=== PATIENT | male | born 1950 | race Caucasian/White ===

== ENCOUNTER 2021-01-01 09:53 | Emergency (ER) | payer OTHER ==
--- OUTSIDE RECORDS SUMMARY | 2021-01-01 10:13 | XMS REPORT | Continuity of Care Document ---
:1950 Author Organization [facility] t Address [address] [place] [address] Care Team Providers Name Role Phone Odilia COLBERT, [facility] Primary Care Physician [phone] Doctor Unassigned, [place] Attending Clinician Unavailable Nallely BANGURA Attending Clinician Unavailable Gilles COLBERT Attending Clinician Yael Yousif MD Attending Clinician Gloria COLBERT Attending Clinician Naldo COLBERT P Attending Clinician Matthew Traore DO Attending Clinician Singer DYE Attending Clinician Ranjith COLBERT Attending Clinician Carolee COLBERT Attending Clinician Lab, Fam Pob I Attending Clinician Unavailable Codie GAN S Attending Clinician Gloria COLBERT Admitting Clinician Ranjith COLBERT Admitting Clinician Payers Payer Name Policy Type Policy Number Effective Date Expiration Date S ource Problems Condition Condition Condition Status Onset Resolution Last Treating Co mments Source Name Details Category Date Date Treatment Clinician Date Bed-ridden Bed-ridden Problem Active [facility] 4-16 Family 00:00: Practic 00 e Aphagia Aphagia Problem Active [place] 4[facility] Family 00:00: Practic 00 e Incontinen Incontinen Problem Active [facility] ce ce 4-16 Family 00:00: Practic 00 e Total Total Problem Active [facility] self-care Self-care 4-16 Fami ly deficit Deficit 00:00: Practic 00 e Bilateral Bilateral Problem Active 2019-06 Roma griselda cataracts Cataracts 07-30 Fami ly 00:00: Practic 00 e Ex-smoker Ex-smoker Problem Active Roma griselda 9-01 Family 00:00: Practic 00 e Hyperchole Hyperchole Problem Active [facility] sterolemia sterolemia 9-05 [facility] 00:00: Practic 00 e Insomnia Insomnia Problem Active Delacruz ge 9-05 Family 00:00: Practic 00 e Essential Essential Problem Active Roma villalobos hypertensi Hypertensi 9-05 Fa norman on on 00:00: Practic 00 e Gastroesop Gastroesop Problem Active [facility] hageal hageal 9-05 Family reflux Reflux 00:00: Practic disease Disease 00 e Bilateral Bilateral Problem Active Roma griselda knee pain Knee Pain 905 Fami ly 00:00: Practic 00 e Allergies, Adverse Reactions, Alerts Allergy Allergy Status Severity Reaction(s) Onset Inactive Treating Comm ents Source Name Type Date Date Clinician No Known DA Active [facility] Allergie 3-05 Clear s 00:00: Morfin 00 [facility] No Known DA Active [facility] Allergie 3-04 Clear s 00:00: Morfin 00 [facility] Social History Social Habit Start Date Stop Date Quantity Comments Source Cigarettes smoked 2016-12-24 2016-12-[address] [facility] current (pack per 00:00:00 00:00:00 day) - Reported Alcohol intake 2016-12-24 2016-12-24 Current drinker [facility] 00:00:00 00:00:00 of alcohol (finding) Alcohol Comment 2016-09-15 2016-09-15 scotlizette Roy ethodist 00:00:00 00:00:00 [birth year] Donnie Roy ethodist 00:00:00 00:00:00 Smoking Status Start Date Stop Date Source Former Smoker [facility] Current every day smoker 2016-12-24 00:00:00 Angel Luis compa [facility] Medications Ordered Filled Start Stop Current Ordering Indication Dosage Frequency Signature Comments Components Source Medication Medication Date Date Medication? Clinician (SIG) Name Name omeprazole Yes 20mg QD Take 20 mg [place] (PriLOSEC) 6-30 by mouth Metho di 20 MG 08:31: daily. st capsule 27 amitriptyli Yes QD Take by Angel Luis chatman ne (ELAVIL) 6-30 mouth Methodi 75 MG 08:31: nightly. st tablet 27 cyclobenzap Yes 10mg QD Take 10 mg Fields rine 1-25 by mouth Methodi (FLEXERIL) 00:00: nightly as s t 10 mg 00 needed. tablet atenolol Yes 25mg QD Take 25 mg Angel Luis chatman (TENORMIN) 1-12 by mouth Metho di 25 MG 00:00: once st tablet 00 daily. amantadine amantadine No 1 BID amantadine [facility] HCl 100 mg HCl 100 mg HCl 100 mg Family tablet Take tablet Take tablet Practic 1 tablet 1 tablet Take 1 e twice a day twice a day tablet by oral by oral twice a route. route. day by oral route. amiodarone amiodarone No 1 Q1D amiodarone [facility] 200 mg 200 mg 200 mg Family tablet Take tablet Take tablet Practic 1 tablet 1 tablet Take 1 e every day every day tablet by oral by oral every day route. route. by oral route. amitriptyli amitriptyli No 1 Q1D amitriptyl [facility] ne 75 mg ne 75 mg ine 75 mg Fa norman tablet Take tablet Take tablet Practic 1 tablet 1 tablet Take 1 e every day every day tablet by oral by oral every day route. route. by oral route. amlodipine amlodipine No 1 Q1D amlodipine [facility] 5 mg tablet 5 mg tablet 5 mg F amily Take 1 Take 1 tablet Practic tablet tablet Take 1 e every day every day tablet by oral by oral every day route. route. by oral route. aspirin one aspirin one No aspirin [place] tablet tablet one tablet Famil y daily daily daily Practic e atenolol 25 atenolol 25 No 1 Q1D atenolol [place] mg tablet mg tablet 25 mg Fami ly Take 1 Take 1 tablet Practic tablet tablet Take 1 e every day every day tablet by oral by oral every day route. route. by oral route. atorvastati atorvastati No 1 Q1D atorvastat [facility] n 20 mg n 20 mg in 20 mg Famil y tablet Take tablet Take tablet Practic 1 tablet 1 tablet Take 1 e every day every day tablet by oral by oral every day route. route. by oral route. bupropion bupropion No 1 BID bupropion [facility] HCl 150 mg HCl 150 mg HCl 150 mg Family tablet,12 tablet,12 tablet,12 Practic hr hr hr e sustained-r sustained-r sustained- elease(smok elease(smok release(sm ing ing oking deterrent) deterrent) deterrent) Take 1 Take 1 Take 1 tablet tablet tablet twice a day twice a day twice a by oral by oral day by route. route. oral route. carvedilol carvedilol No 1 BID carvedilol [facility] 25 mg 25 mg 25 mg Family tablet Take tablet Take tablet Practic 1 tablet 1 tablet Take 1 e twice a day twice a day tablet by oral by oral twice a route. route. day by oral route. clopidogrel clopidogrel No 1 Q1D clopidogre [facility] 75 mg 75 mg l 75 mg Family tablet Take tablet Take tablet Practic 1 tablet 1 tablet Take 1 e every day every day tablet by oral by oral every day route. route. by oral route. lisinopril lisinopril No 1 Q1D lisinopril [facility] 20 mg 20 mg 20 mg Family tablet Take tablet Take tablet Practic 1 tablet 1 tablet Take 1 e every day every day tablet by oral by oral every day route. route. by oral route. lovastatin lovastatin No 1 Q1D lovastatin [facility] 20 mg 20 mg 20 mg Family tablet Take tablet Take tablet Practic 1 tablet 1 tablet Take 1 e every day every day tablet by oral by oral every day route. route. by oral route. melatonin melatonin No 1capsul Q1D melatonin [facility] 10 mg 10 mg e(s) 10 mg Family capsule capsule capsule Practi c Take 1 Take 1 Take 1 e capsule capsule capsule every day every day every day by oral by oral by oral route. route. route. metoprolol metoprolol No 1 BID metoprolol [facility] tartrate 50 tartrate 50 tartrate Family mg tablet mg tablet 50 mg Prac tic Take 1 Take 1 tablet e tablet tablet Take 1 twice a day twice a day tablet by oral by oral twice a route. route. day by oral route. omeprazole omeprazole No 1capsul Q1D omeprazole [facility] 20 mg 20 mg e(s) 20 mg Family capsule,del capsule,del capsule,de Practic ayed ayed layed e release release release Take 1 Take 1 Take 1 capsule capsule capsule every day every day every day by oral by oral by oral route. route. route. potassium potassium No 1packet QID potassium [facility] chloride 20 chloride 20 (s) chloride Family mEq oral mEq oral 20 mEq Pract ic packet Take packet Take oral e 1 packet 4 1 packet 4 packet times a day times a day Take 1 by oral by oral packet 4 route. route. times a day by oral route. Immunizations Ordered Immunization Filled Immunization Date Status Commen ts Source Name Name influenza, influenza, 2020-02-28 Completed [facility] injectable, injectable, 00:00:00 Practice quadrivalent quadrivalent influenza, influenza, 2018-06-29 [facility] injectable, injectable, 00:00:00 Practice quadrivalent quadrivalent influenza, influenza, 2018-03-29 [facility] injectable, injectable, 00:00:00 Practice quadrivalent quadrivalent pneumococcal pneumococcal 2016-06-29 [facility] norman polysaccharide PPV23 polysaccharide PPV23 00:00:00 Practice zoster recombinant zoster recombinant 2011-06-29 [facility] 00:00:00 Practice Vital Signs Vital Name Observation Time Observation Value Comments Source BP Diastolic 2020-10-12 00:00:00 80 mm[Hg] [facility] Height 2020-10-12 00:00:00 73 [in_i] [facility] BMI (Body Mass 2020-10-12 00:00:00 29 kg/m2 [facility] Index) Practice BP Systolic 2020-10-12 00:00:00 145 mm[Hg] [facility] Body Weight 2020-10-12 00:00:00 220 [lb_av] [facility] BP Diastolic 2020-05-29 00:00:00 80 mm[Hg] [facility] Practice Height 2020-05-29 00:00:00 73 [in_i] [facility] Practice BMI (Body Mass 2020-05-29 00:00:00 29 kg/m2 Vill e Family Index) Practice BP Systolic 2020-05-29 00:00:00 130 mm[Hg] [facility] Body Weight 2020-05-29 00:00:00 220 [lb_av] [facility] Height 2020-02-28 00:00:00 73 [in_i] [facility] Practice BMI (Body Mass 2020-02-28 00:00:00 29 kg/m2 [facility] e Family Index) Practice Body Weight 2020-02-28 00:00:00 220 [lb_av] [facility] Procedures Procedure Date / Time Performed Performing Clinician Sour e External Rhinoplasty [facility] Practice Hernia Repair W/mesh [facility] Bilateral Replacement [facility] Knee Joints Practice Screening for Malignant [facility] Neoplasm of Prostate [facility] Screening Colonoscopy [facility] Plan of Care Planned Activity Planned Date Details Comments Source Future Scheduled Test 2021-01-27 INFLUENZA VACCINE [facility] 00:00:00 [code = INFLUENZA VACCINE] Future Scheduled Test 2015 65+ PNEUMOCOCCAL [facility] 00:00:00 VACCINE (1 of 1 - PPSV23) [code = 65+ PNEUMOCOCCAL VACCINE (1 of 1 - PPSV23)] Future Scheduled Test [address] [facility] 00:00:00 [code = COLONOSCOPY SCREENING] Future Scheduled Test 2000 SHINGLES VACCINES [facility] 00:00:00 (#1) [code = SHINGLES VACCINES (#1)] Future Scheduled Test 1962 COVID-19 VACCINE (1) [facility] 00:00:00 [code = COVID-19 VACCINE (1)] Future Appointment 2021-01-21 Omiana Ajibalauren, 9235 [facility] Family 00:00:00 [address]; [address], [place] [address] Encounters Start End Encounter Admission Attending Care Care Encounter Source Date/Time Date/Time Type Type Clinicians Facility Department ID 2020-11-21 2020-11-21 Orders Doctor GUTIERRES [id number] [id number] 00:00:00 00:00:00 Only Unassigned, NIRMALA [id number] [place] [facility] [id number] 2020-11-16 2020-11-16 Transition Tariq Browningstacy [id number] 00:00:00 00:00:00 of Care Jazmine Mejíay [id number] [place] [id number] 2020-11-02 2020-11-15 [facility] Evan Campoverde 1.2.840.1 [id number] 13:45:00 19:11:00 Encounter Durga Yousif [id number]. 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 2020-08-28 2020-08-28 Patient Víctor [facility] [id number] 00:00:00 00:00:00 Outreach [facility] [id number] [facility] [id number] ELOY [id number] 2020-08-02 2020-08-02 Transition Tariq Browningstacy 1.2.840.114 [id number] 00:00:00 00:00:00 of Care Jazmine Mejíay [id number] [place] [id number] 2020-07-12 2020-08-01 [facility] Taiwo Ferguson 1.2.840.1 14 [id number] 11:54:00 16:00:00 Encounter Con[facility] K[id number] [facility] [id number] [id number] 2020-07-08 2020-07-08 Laboratory Lab, [facility] 1.2.840.114 [id number] 13:10:36 13:30:36 Only [facility]am [facility] [id number] [place] 4.2.7.2.686 David [id number] nal [address] 2020-05-29 2020-05-29 [facility] [id number] V illage 00:00:00 00:00:00 Jill Perry Famil y 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 2019-09-12 2019-09-12 [facility] 1.2.840.114 [id number] 14:37:00 23:59:00 Encounter [facility] [id number] Surgical [id number] Specialti [id number] es 809 [place] 2019-09-12 2019-09-12 Office [facility] 1.2.840.114 [id number] 14:30:23 14:45:23 Visit [facility] [id number] Surgical [id number] Specialti [id number] es 198 [place] Results Test Description Test Time Test Comments Results Result Comments Source CBC W/AUTO DIFF 2020-09-29 08:39:00 Test Item Value Reference Range Interpretation Comme nts WHITE BLOOD CELL (test code = WBC) 10.0 x10 3/uL 4.5-11.0 N RED BLOOD CELL (test code = RBC) 3.82 x10 6/uL 4.00-5.60 L HEMOGLOBIN (test code = HGB) 9.9 g/dL 12.5-16.9 L HEMATOCRIT (test code = HCT) 33.9 % 37.5-50.7 L MEAN CELL VOLUME (test code = MCV) 88.7 fL 81.0-99.0 N MEAN CELL HGB (test code = MCH) 25.9 pg 27.0-33.0 L MEAN CELL HGB CONCETRATION (test code = MCHC) 29.2 g/dL 33.0-37. 0 L RED CELL DISTRIBUTION WIDTH CV (test code = RDW) 16.9 % 11.5- 14.5 H RED CELL DISTRIBUTION WIDTH SD (test code = RDW-SD) 53.4 fL 37 .0-54.0 N PLATELET COUNT (test code = PLT) 397 x10 3/uL 150-400 N MEAN PLATELET VOLUME (test code = MPV) 8.9 fL 7.0-9.0 N NEUTROPHIL % (test code = NT%) 54.2 % 56.0-77.0 L IMMATURE GRANULOCYTE % (test code = IG%) 0.6 % 0.0-2.0 N LYMPHOCYTE % (test code = LY%) 35.1 % 14.0-32.0 H MONOCYTE % (test code = MO%) 7.7 % 4.8-9.0 N EOSINOPHIL % (test code = EO%) 1.7 % 0.3-3.7 N BASOPHIL % (test code = BA%) 0.7 % 0.0-2.0 N NUCLEATED RBC % (test code = NRBC%) 0.0 % 0-0 N NEUTROPHIL # (test code = NT#) 5.40 x10 3/uL 2.0-7.6 N IMMATURE GRANULOCYTE # (test code = IG#) 0.06 x10 3/uL 0.00-0.03 H LYMPHOCYTE # (test code = LY#) 3.50 x10 3/uL 1.0-3.8 N MONOCYTE # (test code = MO#) 0.77 x10 3/uL 0.1-0.8 N EOSINOPHIL # (test code = EO#) 0.17 x10 3/uL 0.0-0.2 N BASOPHIL # (test code = BA#) 0.07 x10 3/uL 0.0-0.2 N NUCLEATED RBC # (test code = NRBC#) 0.00 x10 3/uL 0.0-0.1 N MANUAL DIFF REQUIRED (test code = MDIFF) NO CBC W/AUTO [id number] 08:01:00 Test Item Value Reference Range Interpretation Comments WHITE BLOOD CELL (test code = x10 3/uL 4.5-11.0 WBC) RED BLOOD CELL (test code = RBC) x10 6/uL 4.00-5.60 HEMOGLOBIN (test code = HGB) g/dL 12.5-16.9 HEMATOCRIT (test code = HCT) % 37.5-50.7 MEAN CELL VOLUME (test code = fL 81.0-99.0 MCV) MEAN CELL HGB (test code = MCH) pg 27.0-33.0 MEAN CELL HGB CONCETRATION (test g/dL 33.0-37.0 code = MCHC) RED CELL DISTRIBUTION WIDTH CV % 11.5-14.5 (test code = RDW) PLATELET COUNT (test code = PLT) 397 x10 3/uL 150-400 N NEUTROPHIL % (test code = NT%) % 56.0-77.0 LYMPHOCYTE % (test code = LY%) % 14.0-32.0 NEUTROPHIL # (test code = NT#) x10 3/uL 2.0-7.6 LYMPHOCYTE # (test code = LY#) x10 3/uL 1.0-3.8 MANUAL DIFF REQUIRED (test code = MDIFF) BASIC METABOLIC [id number] 07:52:00 Test Item Value Reference Range Interpretation Comments SODIUM (test code = NA) 138 mEq/L 134-147 N POTASSIUM (test code = 3.0 mEq/L 3.4-5.0 L K) CHLORIDE (test code = 103 mEq/L 100-108 N CL) CARBON DIOXIDE (test 24 mEq/l 21-33 N code = CO2) ANION GAP (test code = 14 0-20 N GAP) GLUCOSE (test code = 67 mg/dL 70-110 L GLU) BLOOD UREA NITROGEN 9 mg/dL 7-18 N (test code = BUN) GLOMERULAR FILTRATION 95.6 70-80 H Units of measure = RATE (test code = GFR) ml/mi n/1.73 m2 CREATININE (test code = 0.8 mg/dL 0.6-1.3 N CREAT) CALCIUM (test code = 9.1 mg/dL 8.0-10.5 N CA) BASIC METABOLIC [id number] 08:23:00 Test Item Value Reference Range Interpretation Comments SODIUM (test code = NA) 139 mEq/L 134-147 N POTASSIUM (test code = 3.6 mEq/L 3.4-5.0 N K) CHLORIDE (test code = 106 mEq/L 100-108 N CL) CARBON DIOXIDE (test 21 mEq/l 21-33 N code = CO2) ANION GAP (test code = 16 0-20 N GAP) GLUCOSE (test code = 66 mg/dL 70-110 L GLU) BLOOD UREA NITROGEN < 5 mg/dL 7-18 L (test code = BUN) GLOMERULAR FILTRATION 111.5 70-80 H Units of measure = RATE (test code = GFR) ml/mi n/1.73 m2 CREATININE (test code = 0.7 mg/dL 0.6-1.3 N CREAT) CALCIUM (test code = 9.0 mg/dL 8.0-10.5 N CA) TOTAL IRON BINDING [id number] 08:11:00 Test Item Value Reference Range Interpretation Comments SERUM IRON (test code = IRON) 44 mcg/dL 35-150 N TOTAL IRON BINDING CAPACITY (test 299 mcg/dL 260-445 N code = TIBC) UIBC (test code = UIBC) 255 mcg/dL IRON SATURATION (test code = 14.7 % 14-34 N FESAT) VITAMIN [id number] 08:11:00 Test Item Value Reference Range Interpretation Comments VITAMIN B12 (test code = VITB12) 390 pg/mL 193-986 N FOLIC [id number] 08:11:00 Test Item Value Reference Range Interpretation Comments FOLIC ACID (test code = FOL) 18.8 ng/mL 3.1-17.5 H [id number] 08:11:00 Test Item Value Reference Range Interpretation Comments FERRITIN (test code = FLORA) 69.8 ng/mL 23.9-336.2 N CBC W/AUTO [id number] 07:20:00 Test Item Value Reference Range Interpretation Comments WHITE BLOOD CELL (test code = 11.1 x10 3/uL 4.5-11.0 H WBC) RED BLOOD CELL (test code = 3.61 x10 6/uL 4.00-5.60 L RBC) HEMOGLOBIN (test code = HGB) 9.4 g/dL 12.5-16.9 L HEMATOCRIT (test code = HCT) 32.1 % 37.5-50.7 L MEAN CELL VOLUME (test code = 88.9 fL 81.0-99.0 N MCV) MEAN CELL HGB (test code = MCH) 26.0 pg 27.0-33.0 L MEAN CELL HGB CONCETRATION 29.3 g/dL 33.0-37.0 L (test code = MCHC) RED CELL DISTRIBUTION WIDTH CV 15.9 % 11.5-14.5 H (test code = RDW) RED CELL DISTRIBUTION WIDTH SD 51.8 fL 37.0-54.0 N (test code = RDW-SD) PLATELET COUNT (test code = 366 x10 3/uL 150-400 N PLT) MEAN PLATELET VOLUME (test code 9.0 fL 7.0-9.0 N = MPV) NEUTROPHIL % (test code = NT%) 70.1 % 56.0-77.0 N IMMATURE GRANULOCYTE % (test 0.7 % 0.0-2.0 N code = IG%) LYMPHOCYTE % (test code = LY%) 20.6 % 14.0-32.0 N MONOCYTE % (test code = MO%) 6.6 % 4.8-9.0 N EOSINOPHIL % (test code = EO%) 1.5 % 0.3-3.7 N BASOPHIL % (test code = BA%) 0.5 % 0.0-2.0 N NUCLEATED RBC % (test code = 0.0 % 0-0 N NRBC%) NEUTROPHIL # (test code = NT#) 7.80 x10 3/uL 2.0-7.6 H IMMATURE GRANULOCYTE # (test 0.08 x10 3/uL 0.00-0.03 H code = IG#) LYMPHOCYTE # (test code = LY#) 2.29 x10 3/uL 1.0-3.8 N MONOCYTE # (test code = MO#) 0.74 x10 3/uL 0.1-0.8 N EOSINOPHIL # (test code = EO#) 0.17 x10 3/uL 0.0-0.2 N BASOPHIL # (test code = BA#) 0.06 x10 3/uL 0.0-0.2 N NUCLEATED RBC # (test code = 0.00 x10 3/uL 0.0-0.1 N NRBC#) MANUAL DIFF REQUIRED (test code NO = MDIFF) COMPREHENSIVE METABOLIC [id number] 00:49:00 Test Item Value Reference Range Interpretation Comments SODIUM (test code = NA) 139 mEq/L 134-147 N POTASSIUM (test code = 3.2 mEq/L 3.4-5.0 L K) CHLORIDE (test code = 106 mEq/L 100-108 N CL) CARBON DIOXIDE (test 24 mEq/l 21-33 N code = CO2) ANION GAP (test code = 12 0-20 N GAP) GLUCOSE (test code = 84 mg/dL 70-110 N GLU) BLOOD UREA NITROGEN 7 mg/dL 7-18 N (test code = BUN) GLOMERULAR FILTRATION 111.5 70-80 H Units of measure = RATE (test code = GFR) ml/mi n/1.73 m2 CREATININE (test code = 0.7 mg/dL 0.6-1.3 N CREAT) TOTAL PROTEIN (test 5.7 g/dL 6.4-8.2 L code = PROT) ALBUMIN (test code = 2.80 g/dL 3.4-5.0 L ALB) CALCIUM (test code = 8.8 mg/dL 8.0-10.5 N CA) BILIRUBIN TOTAL (test 0.50 mg/dL 0.0-1.0 N code = BILT) SGOT/AST (test code = 16 IUnit/L 15-37 N AST) SGPT/ALT (test code = 12 IUnit/L 30-65 L ALT) ALKALINE PHOSPHATASE 179 IUnit/L 20-125 H TOTAL (test code = ALKP) PROTHROMBIN [id number] 00:34:00 Test Item Value Reference Range Interpretation Comments PROTHROMBIN TIME 20.6 SECONDS 9.3-12.9 H PATIENT (test code = PTP) INTERNATIONAL NORMAL 1.9 0.8-1.2 H TARGET RATIO (test code = INR BY IN DICATION INR) Indication INR1. Prophyl axis of venous thrombos is 2.0 - 3. 0 (orthopedic [place] aime), Prophylaxis of venous thrombos is (other than hig h-risk surgery), Jes tment of Deep Vein Thrombosis/Pulm onary Embolism, Preve ntion of systemic emb olism - Tissue heart va lves, Acute Myocardia l Infarction (to prevent systemic embo lism), Valvular heart disease, Atri al Fibrillation, Bileaflet mecha nical valve in aortic position.2. Mec hanical prosthetic valv es (high risk), 2.5 - 3.5 Presence of Lupus Anticoagu lant or Antiphospholi pid Antibodies, Pre vention of systemic e mbolism - Acute Myocard ial Infarction (t o prevent recurre nt infarct). THROMBOPLASTIN TIME [id number] 00:34:00 Test Item Value Reference Range Interpretation Comments THROMBOPLASTIN TIME 38.6 Seconds 25.0-39.5 N Ther apeutic PARTIAL (test code = Range: 50.4 - 88.3 PTT) Seconds Effective 10/12/2018 CBC W/AUTO [id number] 00:32:00 Test Item Value Reference Range Interpretation Comments WHITE BLOOD CELL (test code = 12.7 x10 3/uL 4.5-11.0 H WBC) RED BLOOD CELL (test code = 2.86 x10 6/uL 4.00-5.60 L RBC) HEMOGLOBIN (test code = HGB) 7.2 g/dL 12.5-16.9 L HEMATOCRIT (test code = HCT) 25.0 % 37.5-50.7 L MEAN CELL VOLUME (test code = 87.4 fL 81.0-99.0 N MCV) MEAN CELL HGB (test code = MCH) 25.2 pg 27.0-33.0 L MEAN CELL HGB CONCETRATION 28.8 g/dL 33.0-37.0 L (test code = MCHC) RED CELL DISTRIBUTION WIDTH CV 16.0 % 11.5-14.5 H (test code = RDW) RED CELL DISTRIBUTION WIDTH SD 51.1 fL 37.0-54.0 N (test code = RDW-SD) PLATELET COUNT (test code = 401 x10 3/uL 150-400 H PLT) MEAN PLATELET VOLUME (test code 8.7 fL 7.0-9.0 N = MPV) NEUTROPHIL % (test code = NT%) 74.5 % 56.0-77.0 N IMMATURE GRANULOCYTE % (test 0.6 % 0.0-2.0 N code = IG%) LYMPHOCYTE % (test code = LY%) 18.9 % 14.0-32.0 N MONOCYTE % (test code = MO%) 4.8 % 4.8-9.0 N EOSINOPHIL % (test code = EO%) 0.9 % 0.3-3.7 N BASOPHIL % (test code = BA%) 0.3 % 0.0-2.0 N NUCLEATED RBC % (test code = 0.0 % 0-0 N NRBC%) NEUTROPHIL # (test code = NT#) 9.48 x10 3/uL 2.0-7.6 H IMMATURE GRANULOCYTE # (test 0.07 x10 3/uL 0.00-0.03 H code = IG#) LYMPHOCYTE # (test code = LY#) 2.40 x10 3/uL 1.0-3.8 N MONOCYTE # (test code = MO#) 0.61 x10 3/uL 0.1-0.8 N EOSINOPHIL # (test code = EO#) 0.12 x10 3/uL 0.0-0.2 N BASOPHIL # (test code = BA#) 0.04 x10 3/uL 0.0-0.2 N NUCLEATED RBC # (test code = 0.00 x10 3/uL 0.0-0.1 N NRBC#) MANUAL DIFF REQUIRED (test code NO = MDIFF) - CT HEAD/BRAIN W/O [id number] 11:40:00 [facility] : 1950 Sex: M Name: GUICHO RAYMUNDO [facility] : 1950 Age/S: 70 / M [address] [place] [address] Unit #: [id number] Loc: [place] [address] Phys: Jose Raul Barrientos MD Acct: [id number] Dis Date: Status: REG ER PHONE #: [phone] Exam Date: 09/07/2020 1124 FAX #: [phone] Reason: fall, head strike, on eliquis EXAMS: CPT CODE: [id number] CT HEAD/BRAIN W/O CONT [address] WITHOUT CONTRAST 09/07/2020 AT 737 HOURS. CLINICAL HISTORY: Head strike post fall. On Eliquis. COMPARISON STUDIES: None relevant. ADMINISTERED CONTRAST: None. DLP: 577.84 mGy-cm FINDINGS: Contiguous 2.5 mm axial images of the brain were obtained from the skull base to vertex. Axial bone window and multiplanar reconstructions were also obtained. A large chronic left MCA distribution infarct is identified with severe encephalomalacia and no new CT evidence of acute intracranial ischemia or hemorrhage. These changes are on a background of involutional change and moderate to severe chronic white matter small vessel ischemic disease. Ex vacuo dilatation of the ventricular system is noted in keeping with cerebral volume loss. No mass occupying lesion or midline shift. Severe bilateral cavernous ICA calcification is noted with moderate calcification of the intracranial (V4) vertebral artery segments. Clear paranasal sinuses and left mastoid air cells.A small right mastoid effusion is noted. No visible scalp contusion/hematoma or radiopaque foreign body considering history. IMPRESSION: 1. No acute traumatic intracranial injury. 2. Age related involutional changes and chronic ischemic disease as described. If the patient has a new, persistent, focal neurologic deficit, follow-up with diffusion weighted MRI might be helpful. 3. Severe atherosclerosis. 4. Small right mastoid effusion. ____ CT imaging performed at this location utilizes radiation dose optimization techniques which include one or more of the following: - Automated exposure control-Adjustment of the mA and/or kV according to patient size -Use of iterative reconstruction technique SL: TR-H PAGE 1 Signed Report (CONTINUED) Name: ZACKARYGUICHO [facility] : 07/1950 Age/S: 70 / M [address] [place] [address] Blvd Unit #: [id number] Loc: [place] [address] Phys: Jose Raul Barrientos MD Acct: [id number] Dis Date: Status: REG ER PHONE #: [phone] Exam Date: 09/07/20204 FAX #: [phone]: fall, head strike, on eliquis EXAMS: CPT CODE: [id number] CT HEAD/BRAIN W/O CONT 61101 <Continued> at 1140 Reported and signed by: Sergio Grimes CC: Jose Raul Barrientos MD Lou hnologist:Steve Daniel RT(R)(CT) CTDI: DLP: Trnscb Date/Time: 09/07/2020 (1140) [email or web address] Orig Print D/T: S: 09/07/2020 (5273) PAGE 2 Signed ReportBASIC METABOLIC [id number] 07:55:00 Test Item Value Reference Range Interpretation Comments SODIUM (test code = NA) 139 mEq/L 134-147 N POTASSIUM (test code = 2.8 mEq/L 3.4-5.0 LL Criti jr result K) called to Mariela KENNEYLAB.DVW at 07 55 09/05/20Nsusana donis back resut and tech confirmed it's correct? Y CHLORIDE (test code = 107 mEq/L 100-108 N CL) CARBON DIOXIDE (test 24 mEq/l 21-33 N code = CO2) ANION GAP (test code = 11 0-20 N GAP) GLUCOSE (test code = 86 mg/dL 70-110 N GLU) BLOOD UREA NITROGEN 8 mg/dL 7-18 N (test code = BUN) GLOMERULAR FILTRATION 111.5 70-80 H Units of measure = RATE (test code = GFR) ml/mi n/1.73 m2 CREATININE (test code = 0.7 mg/dL 0.6-1.3 N CREAT) CALCIUM (test code = 9.0 mg/dL 8.0-10.5 N CA) [id number] 07:55:00 Test Item Value Reference Range Interpretation Comments MAGNESIUM (test code = MAG) 1.65 mg/dL 1.80-2.40 L CBC W/AUTO [id number] 07:32:00 Test Item Value Reference Range Interpretation Comments WHITE BLOOD CELL (test code = 10.9 x10 3/uL 4.5-11.0 N WBC) RED BLOOD CELL (test code = 3.39 x10 6/uL 4.00-5.60 L RBC) HEMOGLOBIN (test code = HGB) 9.5 g/dL 12.5-16.9 L HEMATOCRIT (test code = HCT) 32.4 % 37.5-50.7 L MEAN CELL VOLUME (test code = 95.6 fL 81.0-99.0 N MCV) MEAN CELL HGB (test code = MCH) 28.0 pg 27.0-33.0 N MEAN CELL HGB CONCETRATION 29.3 g/dL 33.0-37.0 L (test code = MCHC) RED CELL DISTRIBUTION WIDTH CV 15.5 % 11.5-14.5 H (test code = RDW) RED CELL DISTRIBUTION WIDTH SD 55.0 fL 37.0-54.0 H (test code = RDW-SD) PLATELET COUNT (test code = 400 x10 3/uL 150-400 N PLT) MEAN PLATELET VOLUME (test code 9.6 fL 7.0-9.0 H = MPV) NEUTROPHIL % (test code = NT%) 66.5 % 56.0-77.0 N IMMATURE GRANULOCYTE % (test 0.8 % 0.0-2.0 N code = IG%) LYMPHOCYTE % (test code = LY%) 26.1 % 14.0-32.0 N MONOCYTE % (test code = MO%) 4.4 % 4.8-9.0 L EOSINOPHIL % (test code = EO%) 1.7 % 0.3-3.7 N BASOPHIL % (test code = BA%) 0.5 % 0.0-2.0 N NUCLEATED RBC % (test code = 0.0 % 0-0 N NRBC%) NEUTROPHIL # (test code = NT#) 7.25 x10 3/uL 2.0-7.6 N IMMATURE GRANULOCYTE # (test 0.09 x10 3/uL 0.00-0.03 H code = IG#) LYMPHOCYTE # (test code = LY#) 2.84 x10 3/uL 1.0-3.8 N MONOCYTE # (test code = MO#) 0.48 x10 3/uL 0.1-0.8 N EOSINOPHIL # (test code = EO#) 0.18 x10 3/uL 0.0-0.2 N BASOPHIL # (test code = BA#) 0.05 x10 3/uL 0.0-0.2 N NUCLEATED RBC # (test code = 0.00 x10 3/uL 0.0-0.1 N NRBC#) MANUAL DIFF REQUIRED (test code NO = MDIFF) CBC W/AUTO [id number] 06:56:00 Test Item Value Reference Range Interpretation Comments WHITE BLOOD CELL (test code = x10 3/uL 4.5-11.0 WBC) RED BLOOD CELL (test code = RBC) x10 6/uL 4.00-5.60 HEMOGLOBIN (test code = HGB) g/dL 12.5-16.9 HEMATOCRIT (test code = HCT) % 37.5-50.7 MEAN CELL VOLUME (test code = fL 81.0-99.0 MCV) MEAN CELL HGB (test code = MCH) pg 27.0-33.0 MEAN CELL HGB CONCETRATION (test g/dL 33.0-37.0 code = MCHC) RED CELL DISTRIBUTION WIDTH CV % 11.5-14.5 (test code = RDW) PLATELET COUNT (test code = PLT) 400 x10 3/uL 150-400 N NEUTROPHIL % (test code = NT%) % 56.0-77.0 LYMPHOCYTE % (test code = LY%) % 14.0-32.0 NEUTROPHIL # (test code = NT#) x10 3/uL 2.0-7.6 LYMPHOCYTE # (test code = LY#) x10 3/uL 1.0-3.8 MANUAL DIFF REQUIRED (test code = MDIFF) [id number] 08:15:00 Test Item Value Reference Range Interpretation Comments GLUBED (test code = 148 MG/DL 70-110 H Performe d by certified GLUBED) 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 CBC W/AUTO [id number] 07:59:00 Test Item Value Reference Range Interpretation Comments WHITE BLOOD CELL (test code = 13.0 x10 3/uL 4.5-11.0 H WBC) RED BLOOD CELL (test code = 3.74 x10 6/uL 4.00-5.60 L RBC) HEMOGLOBIN (test code = HGB) 10.3 g/dL 12.5-16.9 L HEMATOCRIT (test code = HCT) 38.1 % 37.5-50.7 N MEAN CELL VOLUME (test code = 101.9 fL 81.0-99.0 H MCV) MEAN CELL HGB (test code = MCH) 27.5 pg 27.0-33.0 N MEAN CELL HGB CONCETRATION 27.0 g/dL 33.0-37.0 L (test code = MCHC) RED CELL DISTRIBUTION WIDTH CV 16.3 % 11.5-14.5 H (test code = RDW) RED CELL DISTRIBUTION WIDTH SD 61.8 fL 37.0-54.0 H (test code = RDW-SD) PLATELET COUNT (test code = 440 x10 3/uL 150-400 H PLT) MEAN PLATELET VOLUME (test code 9.6 fL 7.0-9.0 H = MPV) NEUTROPHIL % (test code = NT%) 73.7 % 56.0-77.0 N IMMATURE GRANULOCYTE % (test 0.5 % 0.0-2.0 N code = IG%) LYMPHOCYTE % (test code = LY%) 17.7 % 14.0-32.0 N MONOCYTE % (test code = MO%) 6.4 % 4.8-9.0 N EOSINOPHIL % (test code = EO%) 1.1 % 0.3-3.7 N BASOPHIL % (test code = BA%) 0.6 % 0.0-2.0 N NUCLEATED RBC % (test code = 0.0 % 0-0 N NRBC%) NEUTROPHIL # (test code = NT#) 9.55 x10 3/uL 2.0-7.6 H IMMATURE GRANULOCYTE # (test 0.07 x10 3/uL 0.00-0.03 H code = IG#) LYMPHOCYTE # (test code = LY#) 2.30 x10 3/uL 1.0-3.8 N MONOCYTE # (test code = MO#) 0.83 x10 3/uL 0.1-0.8 H EOSINOPHIL # (test code = EO#) 0.14 x10 3/uL 0.0-0.2 N BASOPHIL # (test code = BA#) 0.08 x10 3/uL 0.0-0.2 N NUCLEATED RBC # (test code = 0.00 x10 3/uL 0.0-0.1 N NRBC#) MANUAL DIFF REQUIRED (test code NO = MDIFF) COMPREHENSIVE METABOLIC [id number] 07:41:00 Test Item Value Reference Range Interpretation Comments SODIUM (test code = NA) 145 mEq/L 134-147 N POTASSIUM (test code = 3.2 mEq/L 3.4-5.0 L K) CHLORIDE (test code = 114 mEq/L 100-108 H CL) CARBON DIOXIDE (test 20 mEq/l 21-33 L code = CO2) ANION GAP (test code = 14 0-20 N GAP) GLUCOSE (test code = 96 mg/dL 70-110 N GLU) BLOOD UREA NITROGEN 9 mg/dL 7-18 (test code = BUN) GLOMERULAR FILTRATION 111.5 70-80 H Units of measure = RATE (test code = GFR) ml/mi n/1.73 m2 CREATININE (test code = 0.7 mg/dL 0.6-1.3 N CREAT) TOTAL PROTEIN (test 6.3 g/dL 6.4-8.2 L code = PROT) ALBUMIN (test code = 3.00 g/dL 3.4-5.0 L ALB) CALCIUM (test code = 9.2 mg/dL 8.0-10.5 N CA) BILIRUBIN TOTAL (test 0.40 mg/dL 0.0-1.0 code = BILT) SGOT/AST (test code = 26 IUnit/L 15-37 N AST) SGPT/ALT (test code = 22 IUnit/L 30-65 L ALT) ALKALINE PHOSPHATASE 146 IUnit/L 20-125 H TOTAL (test code = ALKP) [id number] 07:41:00 Test Item Value Reference Range Interpretation Comments MAGNESIUM (test code = MAG) 2.09 mg/dL 1.80-2.40 N - CT ABD PELVIS [id number] 13:19:00 [facility] EMERY MORFINName: GUICHO RAYMUNDO : 1950 Sex: M Name: GUICHO RAYMUNDO [facility] Emery Morfin : 1950 Age/S: 70 / M [address] [place] [address] Blvd Unit #: [id number] Loc: [place] [address] Phys: Zander Gordon [employer]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 Coronal and sagittal reconstructed images were performed. Nooral contrast was given. CT imaging performed at this location utilizes radiation dose optimization techniques which include one or more of the following: - Automated exposure control -Adjustment of the mA and/or kV according to patient size -Use of iterative reconstruction technique CT Radiation Dose DLP 833.50 mGy-cm Comparison is made to x-ray08/30/2020 FINDINGS: Dependent atelectasis in the lung bases is noted. Colonic interposition is noted. No calcified gallstones are present. No lesion within the liver is identified. No splenic mass is present. Bilateral adrenal glands are grossly unremarkable. Left kidney enhances normally. No hydronephrosis or renal stones are present. There is diminished enhancement in the posterior portion of the right kidney. Pancreas appears normal. Aortic calcifications are present without aneurysmal dilatation. There is free intraperitoneal air anterior to the liver. No drainable fluid collection is noted. No extraluminal contrast is identified. There is contrast in the colon with mild scatter artifact. No bowel dilatation is present. Appendix is normal caliber. Urinary bladder and prostate are grossly unremarkable. No iliac or inguinal lymphadenopathy is present. No drainable fluid collection is identified. There are mild degenerative changes throughout the lumbar spine. No acute or aggressive bony abnormality is present. IMPRESSION: 1. Small volume free intraperitoneal air likely related to recent gastric tube replacement attempt. 2. No contrast identified within peritoneum. No fluid collection. 3. No bowel obstruction. 4. Dependent atelectasis in lung bases. 5. Abnormal enhancement of posterior right kidney. Mild pyelonephritis not excluded. SL: [id number] PAGE 1 Signed Report (CONTINUED) Name: ALFREDA RAYMUNDO : 1950 Age/S: 70 / M [address] [place] [address] Unit #: [id number] Loc: [place] [address] Phys: Zander Gordon NP Acct: [id number] Dis Date: Status: ADM IN PHONE #: [phone] Exam Date: 09/01/2020 1301 FAX #: [phone] Reason: to check Leak in abdominal cavity EXAMS: CPT CODE: [id number] CT ABD PELVIS W/CONT 81677 <Continued> at 1319 Reported and signed by: Sloan Rey M.D. CC: Narendra Woods MD; Zander Gordon NP Technologist:RT Jaqueline(R)(CT) CTDI: DLP: Trnscb Date/Time: 09/01/2020 (1319) [email or web address] Orig Print D/T: S: 09/01/2020 (1322) PAGE 2 Signed ReportCBC W/AUTO [id number] 09:52:00 Test Item Value Reference Range Interpretation Comments WHITE BLOOD CELL (test code = 12.7 x10 3/uL 4.5-11.0 H WBC) RED BLOOD CELL (test code = 3.69 x10 6/uL 4.00-5.60 L RBC) HEMOGLOBIN (test code = HGB) 10.3 g/dL 12.5-16.9 L HEMATOCRIT (test code = HCT) 34.9 % 37.5-50.7 L MEAN CELL VOLUME (test code = 94.6 fL 81.0-99.0 N MCV) MEAN CELL HGB (test code = MCH) 27.9 pg 27.0-33.0 N MEAN CELL HGB CONCETRATION 29.5 g/dL 33.0-37.0 L (test code = MCHC) RED CELL DISTRIBUTION WIDTH CV 16.3 % 11.5-14.5 H (test code = RDW) RED CELL DISTRIBUTION WIDTH SD 55.8 fL 37.0-54.0 H (test code = RDW-SD) PLATELET COUNT (test code = 371 x10 3/uL 150-400 N PLT) MEAN PLATELET VOLUME (test code 9.5 fL 7.0-9.0 H = MPV) NEUTROPHIL % (test code = NT%) 72.8 % 56.0-77.0 N IMMATURE GRANULOCYTE % (test 0.6 % 0.0-2.0 N code = IG%) LYMPHOCYTE % (test code = LY%) 19.2 % 14.0-32.0 N MONOCYTE % (test code = MO%) 6.1 % 4.8-9.0 N EOSINOPHIL % (test code = EO%) 0.9 % 0.3-3.7 N BASOPHIL % (test code = BA%) 0.4 % 0.0-2.0 N NUCLEATED RBC % (test code = 0.0 % 0-0 N NRBC%) NEUTROPHIL # (test code = NT#) 9.26 x10 3/uL 2.0-7.6 H IMMATURE GRANULOCYTE # (test 0.07 x10 3/uL 0.00-0.03 H code = IG#) LYMPHOCYTE # (test code = LY#) 2.44 x10 3/uL 1.0-3.8 N MONOCYTE # (test code = MO#) 0.78 x10 3/uL 0.1-0.8 N EOSINOPHIL # (test code = EO#) 0.12 x10 3/uL 0.0-0.2 N BASOPHIL # (test code = BA#) 0.05 x10 3/uL 0.0-0.2 N NUCLEATED RBC # (test code = 0.00 x10 3/uL 0.0-0.1 N NRBC#) MANUAL DIFF REQUIRED (test code NO = MDIFF) BASIC METABOLIC [id number] 09:51:00 Test Item Value Reference Range Interpretation Comments SODIUM (test code = NA) 144 mEq/L 134-147 N POTASSIUM (test code = 3.2 mEq/L 3.4-5.0 L K) CHLORIDE (test code = 110 mEq/L 100-108 H CL) CARBON DIOXIDE (test 26 mEq/l 21-33 N code = CO2) ANION GAP (test code = 11 0-20 N GAP) GLUCOSE (test code = 104 mg/dL 70-110 N GLU) BLOOD UREA NITROGEN 19 mg/dL 7-18 H (test code = BUN) GLOMERULAR FILTRATION 111.5 70-80 H Units of measure = RATE (test code = GFR) ml/mi n/1.73 m2 CREATININE (test code = 0.7 mg/dL 0.6-1.3 N CREAT) CALCIUM (test code = 10.5 mg/dL 8.0-10.5 N CA) CBC W/AUTO [id number] 09:44:00 Test Item Value Reference Range Interpretation Comments WHITE BLOOD CELL (test code = x10 3/uL 4.5-11.0 WBC) RED BLOOD CELL (test code = RBC) x10 6/uL 4.00-5.60 HEMOGLOBIN (test code = HGB) g/dL 12.5-16.9 HEMATOCRIT (test code = HCT) % 37.5-50.7 MEAN CELL VOLUME (test code = fL 81.0-99.0 MCV) MEAN CELL HGB (test code = MCH) pg 27.0-33.0 MEAN CELL HGB CONCETRATION (test g/dL 33.0-37.0 code = MCHC) RED CELL DISTRIBUTION WIDTH CV % 11.5-14.5 (test code = RDW) PLATELET COUNT (test code = PLT) 371 x10 3/uL 150-400 N NEUTROPHIL % (test code = NT%) % 56.0-77.0 LYMPHOCYTE % (test code = LY%) % 14.0-32.0 NEUTROPHIL # (test code = NT#) x10 3/uL 2.0-7.6 LYMPHOCYTE # (test code = LY#) x10 3/uL 1.0-3.8 MANUAL DIFF REQUIRED (test code = MDIFF) - XR CHEST 1 [id number] 05:49:00 [facility] : 1950 Sex: M FAX: Narendra Woods MD [phone] Busy: St: ADM FAX: Yvonne Valerio MD [phone] FAX: Helder Cantor MD [phone] Name: GUICHO RAYMUNDO [facility] : 1950 Age/S: 70/M [address] [place] [address] Unit #: [id number] Loc: [address] [address] Phys: Amol Gonzalez MD Acct: [id number] Dis Date: Status: ADM IN PHONE #: [phone] Exam Date: 08/31/202042 FAX #: [phone] Reason: EDG WITH PEG TUBE PLACEMENT/PRE OP EXAMS: CPT CODE: [id number] XR CHEST 1 V 70128 Study: - XR CHEST 1 V 08/31/2020 5:00 AM Patient Name: GUICHO RAYMUNDO MR: [id number] : 1950; Age: 70 years y/o Male Ordering Physician: Amol Gonzalez MD Clinical Indication: EDG WITH PEG TUBE PLACEMENT/PRE OP Comparison: None FINDINGS LUNGS: Mild hypoinflation associated with a moderately elevated right hemidiaphragm with mild adjacent subsegmental atelectasis. Mild central pulmonary vascular congestion is otherwise seen with hazy opacity in both lungs suggesting mild edema or nonspecific pneumonitis. Indeterminate subcentimeter nodular densities are seen in the left upper lobe and left lung apex. No pleural effusion or pneumothorax. HEART AND MEDIASTINUM: Heart size at the upper limits of normal.LINES: None. OSSEOUS STRUCTURES: No fracture, dislocation, or suspicious focal osseous lesion. OTHER: None. IMPRESSION: Mild hypoinflation associated with a moderately elevated right hemidiaphragm with mild adjacent subsegmental atelectasis. Mild central pulmonary vascular congestion is otherwise seen with hazy opacity in both lungs suggesting mild edema or nonspecific pneumonitis. Indeterminate subcentimeter nodular densities are seen in the left upper lobe and left lung apex. Follow-up CT chest may be helpful for better characterization. PAGE 1 Signed Report (CONTINUED) FAX: Narendra Woods MD [phone] Busy: St: ADM FAX: Amol Valerio MD [phone]: Helder Cantor MD [phone] Name: GUICHO RAYMUNDO [facility] : 1950 Age/S: 70/M [address] [place] [address] Blvd Unit #: [id number] c: [id number] [place] [address] Phys: Amol Gonzalez MD Acct: [id number] Dis Date: Status: ADM IN PHONE #: [phone] Exam Date: 08/31/2020541 FAX #: [phone] Reason: EDG WITH PEG TUBE PLACEMENT/PRE OP EXAMS: CPT CODE: [id number] XR CHEST 1 V 21963 <Continued> Heart size at the upper limits of normal. SL: TPAINTER-H at 0549 Reported and signed by: Wily Lester M.D. CC: Narendra Woods MD; Amol Gonzalez MD; Helder Salazar MD Technologist: Homer Cheng, RT(R); Mary Jane Mann RT(R) Trnscrd Date/Time/By: 08/31/2020 (0549) : By: [email or web address] Orig Print D/T: S: 08/31/2020 (0549) PAGE 2 Signed ReportPROTHROMBIN [id number] 21:28:00 Test Item Value Reference Range Interpretation Comments PROTHROMBIN TIME 14.3 SECONDS 9.3-12.9 H PATIENT (test code = PTP) INTERNATIONAL NORMAL 1.3 0.8-1.2 H TARGET RATIO (test code = INR BY IN DICATION INR) Indication INR1. Prophyl axis of venous thrombos is 2.0 - 3. 0 (orthopedic [place] aime), Prophylaxis of venous thrombos is (other than hig h-risk surgery), Jes tment of Deep Vein Thrombosis/Pulm onary Embolism, Preve ntion of systemic emb olism - Tissue heart va lves, Acute Myocardia l Infarction (to prevent systemic embo lism), Valvular heart disease, Atri al Fibrillation, Bileaflet mecha nical valve in aortic position.2. Mec hanical prosthetic valv es (high risk), 2.5 - 3.5 Presence of Lupus Anticoagu lant or Antiphospholi pid Antibodies, Pre vention of systemic e mbolism - Acute Myocard ial Infarction (t o prevent recurre nt infarct). COVID 19 Asymptomatic IH [id number] 21:19:00 Test Item Value Reference Range Interpretation Comments COVID 19 Asymptomatic Negative Negative A nega tive result is IH AG (test code = presumpti ve and should COVNONPUIAG) be confirmedwit h an FDA authorized mole cular assay, if neces laura forpatient claude gement.A positive result does not rule out co-inf ections withother patho gens.This test detects raul th viable (live) and non-viable,SARS -CoV, and SARS-CoV-2. Gilma t performance dep ends on theamount of vi wily (antigen) in th e sample.This gilma t has not been FDA cleare d or approved; the t est hasbeen authori zed by FDA under an Em ergency Use Authorizati on(EUA) for use by labo ratories certified under the CLIA thatmeet the requirements to perform moderate, high or waivedcomplexit y tests. COMMENTS: If not done this admission- RPLC DESHAWN OR CECO [id number] 16:26:00 [facility] : 1950 Sex: M FAX: Narendra Woods MD [phone] Busy: St: ADM FAX: Kym Martin MD [phone] Name: FLORAGUICHO LIVE [facility] : 1950ge/S: 70/M [address] [place] [address] Unit #: [id number] Loc: [facility] [place] [address] Phys: Sancho Martin MD Acct: [id number] Dis Date: Status: ADM IN PHONE #:[phone] Exam Date: 08/30/20202 FAX #: [phone] Reason: peg placement EXAMS: CPT CODE: [id number] RPLC DESHAWN OR CECO TUBE 21046 INDICATION: Dislodged gastrostomy tube PROCEDURE: Fluoroscopically guided unsuccessful gastrostomy tube replacement. TECHNICAL: Fluoroscopic time was 13.4 minutes. Reference Air Kerma Dose 285 mGy. COMPLICATION: None immediately evident. PROCEDURE: The procedure, risks, benefits and alternatives were discussed. Informed consent was obtained. The patient was taken to the interventional suite and placed on the table in supine position. A time out was performed. Skin of the left abdomen was preppedand draped sterilely. Lidocaine was used for local anesthesia. Multiple unsuccessful attempts were made to cannulate the existing gastrostomy tract into the stomach. 4-Liberian catheter was advanced through the nose into the stomach. Air was insufflated in the stomach for better visualization. Access was not obtained to the stomach. Decision was made to abandon the procedure. The patient was subsequently discharged from the department in stable condition. IMPRESSION: Unsuccessful fluoroscopically guided replacement of gastrostomy tube. at 9406 Reported and signed by: Rose Lora D.O. CC: Narendra Woods MD; Sancho Martin MD Technologist: Milena Nesbitt RT(R) Trnscrd Date/Time/By: 08/30/2020 (9775) : By: [email or web address] [facility] Print D/T: S: 08/30/2020 (7310) PAGE 1 Signed ReportCOMPREHENSIVE METABOLIC [id number] 15:33:00 Test Item Value Reference Range Interpretation Comments SODIUM (test code = NA) 142 mEq/L 134-147 N POTASSIUM (test code = 3.6 mEq/L 3.4-5.0 N K) CHLORIDE (test code = 108 mEq/L 100-108 N CL) CARBON DIOXIDE (test 25 mEq/l 21-33 N code = CO2) ANION GAP (test code = 13 0-20 N GAP) GLUCOSE (test code = 105 mg/dL 70-110 N GLU) BLOOD UREA NITROGEN 23 mg/dL 7-18 H (test code = BUN) GLOMERULAR FILTRATION 95.6 70-80 H Units of measure = RATE (test code = GFR) ml/mi n/1.73 m2 CREATININE (test code = 0.8 mg/dL 0.6-1.3 N CREAT) TOTAL PROTEIN (test 7.1 g/dL 6.4-8.2 N code = PROT) ALBUMIN (test code = 3.30 g/dL 3.4-5.0 L ALB) CALCIUM (test code = 10.6 mg/dL 8.0-10.5 H CA) BILIRUBIN TOTAL (test 0.70 mg/dL 0.0-1.0 N code = BILT) SGOT/AST (test code = 28 IUnit/L 15-37 N AST) SGPT/ALT (test code = 36 IUnit/L 30-65 N ALT) ALKALINE PHOSPHATASE 181 IUnit/L 20-125 H TOTAL (test code = ALKP) CBC W/AUTO [id number] 15:17:00 Test Item Value Reference Range Interpretation Comments WHITE BLOOD CELL (test code = 15.4 x10 3/uL 4.5-11.0 H WBC) RED BLOOD CELL (test code = 4.09 x10 6/uL 4.00-5.60 N RBC) HEMOGLOBIN (test code = HGB) 11.4 g/dL 12.5-16.9 L HEMATOCRIT (test code = HCT) 39.2 % 37.5-50.7 N MEAN CELL VOLUME (test code = 95.8 fL 81.0-99.0 N MCV) MEAN CELL HGB (test code = 27.9 pg 27.0-33.0 N MCH) MEAN CELL HGB CONCETRATION 29.1 g/dL 33.0-37.0 L (test code = MCHC) RED CELL DISTRIBUTION WIDTH CV 16.3 % 11.5-14.5 H (test code = RDW) RED CELL DISTRIBUTION WIDTH SD 57.3 fL 37.0-54.0 H (test code = RDW-SD) PLATELET COUNT (test code = 404 x10 3/uL 150-400 H PLT) MEAN PLATELET VOLUME (test 9.6 fL 7.0-9.0 H code = MPV) NEUTROPHIL % (test code = NT%) 76.0 % 56.0-77.0 N IMMATURE GRANULOCYTE % (test 0.8 % 0.0-2.0 N code = IG%) LYMPHOCYTE % (test code = LY%) 16.9 % 14.0-32.0 N MONOCYTE % (test code = MO%) 5.0 % 4.8-9.0 N EOSINOPHIL % (test code = EO%) 0.8 % 0.3-3.7 N BASOPHIL % (test code = BA%) 0.5 % 0.0-2.0 N NUCLEATED RBC % (test code = 0.0 % 0-0 N NRBC%) NEUTROPHIL # (test code = NT#) 11.66 x10 3/uL 2.0-7.6 H IMMATURE GRANULOCYTE # (test 0.12 x10 3/uL 0.00-0.03 H code = IG#) LYMPHOCYTE # (test code = LY#) 2.60 x10 3/uL 1.0-3.8 N MONOCYTE # (test code = MO#) 0.77 x10 3/uL 0.1-0.8 N EOSINOPHIL # (test code = EO#) 0.13 x10 3/uL 0.0-0.2 N BASOPHIL # (test code = BA#) 0.07 x10 3/uL 0.0-0.2 N NUCLEATED RBC # (test code = 0.00 x10 3/uL 0.0-0.1 N NRBC#) MANUAL DIFF REQUIRED (test NO code = MDIFF) - XR ABDOMEN 1V (KU)2020-08-30 08:01:00 [facility] : 1950 Sex: M FAX: Narendra Woods MD [phone] Busy: St: REG FAX: Kym Martin MD [phone] Name: GUICHO RAYMUNDO [facility] [place] : 1950ge/S: 70/M [address] [place] [address] Unit #: [id number] Loc: [place] [address] Phys: Sancho Martin MD Acct: [id number] Dis Date: Status: REG ER PHONE #:[phone] Exam Date: 08/30/2020 0749 FAX #: [phone] Reason: PEG Placement EXAMS: CPT CODE: [id number] XR ABDOMEN 1V (KUB) [id number] Abdomen single view 08/30/2020 0734 hours HISTORY: PICC placement Comparison is made to 08/30/2020 0637 hours FINDINGS: Contrast in the colon is unchanged. After the injection of water-soluble contrast through a PEG tube, extraluminal contrast is visualized. Degenerative changes in the spine are unchanged. IMPRESSION: Extraluminal contrast indicating malpositioned PEG tube not adequately communicating with gastric lumen. Findings were discussed with Dr. Martin by Dr. Rey at 7:59 AM on 08/30/2020. SL: [id number] at 0801 Reported and signed by: Sloan Rey M.D. CC: Narendra Woods MD; Sancho Martin MD Technologist: Homer Cheng RT(R) Trnscrd Date/Time/By: 08/30/2020 (800) : By: [email or web address] Orig Print D/T: S: 08/30/2020 (04)PAGE 1 Signed Report- XR ABDOMEN [id number] 07:05:00 [facility] : 1950 Sex: M FAX: Narendra Woods MD [phone] Busy: St: REG FAX: Kym Martin MD [phone] Name: GUICHO RAYMUNDO [facility] : 1950ge/S: 70/M [address] [place] [address] Unit #: [id number] Loc: [place] [address] Phys: Sancho Martin MD Acct: [id number] Dis Date: Status: REG ER PHONE #:[phone] Exam Date: 08/30/2020 0654 FAX #: [phone] Reason: concerns for perf EXAMS: CPT CODE: [id number] XR ABDOMEN 2V 46548 Abdomen 2 view 08/30/2020 0642 hours HISTORY: Possible free air. Comparison ismade to 08/30/2020 0538 hours FINDINGS: There is no free air identified on the right lateral decubitus view. Upright abdomen shows no free intraperitoneal air under the hemidiaphragm. There is contrast in the colon. Contrast within the appendix is noted. Previous extraluminal contrast has decreased. There are degenerative changes in the spine. IMPRESSION: 1. No free air. 2. No dilated bowel loops. 3. Previous extraluminal contrast has decreased. SL: [id number] at 0705 Reported and signed by: Sloan Rye M.D. CC: Narendra Woods MD; Sancho Martin MD Technologist: Mary Jane Mann, RT(R); Tiarra Christensen, RT(R) Trnncrd Date/Time/By: 08/30/2020 (07) : By: [email or web address] Orig Print D/T: S: 08/30/2020 (5165) PAGE 1 Signed Report- XR ABDOMEN 1V (KUB)2020-08-30 06:03:00 [facility] : 1950 Sex: M FAX: Paul Botello MD [phone] Busy: St: REG Name: ZACKARYGUICHO [facility] : 1950 Age/S: 70/M [address] [place] [address] Bl Unit #: [id number] Loc: [place] [address] Phys: Paul Malloy MD Acct: [id number] Dis Date: Status: REG ER PHONE #: [phone] Exam Date: 08/30/202045 FAX #: [phone] Reason: G TUBE PLACEMENT EXAMS: CPT CODE: [id number] XR ABDOMEN 1V (KUB) [id number] STUDY: - XR ABDOMEN 1V (KUB) 08/30/2020 5:28 AM Ordering Physician: Paul Malloy MD Patient Name: GUICHO RAYMUNDO MR: [id number] : 1950; Age: 70 years y/o Male Clinical Indication: G TUBE PLACEMENT Comparison: None Bowel gas: Nonobstructed bowel gas pattern with enteric contrast seen throughout the underdistended colon to the level of the rectum. Additional ill-defined contrast in the upper abdomen partially outlines the stomach, but much of the contrast appears irregular and curvilinear extending both right laterally and inferiorly in the abdomen suspicious for extravasation. Underlying pneumoperitoneum is also questioned. A percutaneous catheter is seen in the left upper abdominal quadrant, location uncertain. General: No organomegaly, mass lesions, or suspicious abnormal calcifications. Lung b ases: No significant abnormality. Osseous structures: No fracture, dislocation, or suspicious focal osseous lesion. IMPRESSION: Nonobstructive bowel gas pattern with a percutaneous catheter in the left upper abdominal quadrant location uncertain. The majority of the colon contains enteric contrast with ill- defined somewhat curvilinear contrast in the upper and mid abdomen some of which appears outside the confines of the stomach suspicious for extravasation. Additionally, pneumoperitoneum is questioned. Further evaluation may be attempted with an upright abdominal image and right lateral decubitus image initially. Alternatively follow-up noncontrast CT may be attempted,but will likely have significant artifact from the enteric contrast. Critical findings were communicated to Paul Malloy MD on 08/30/2020 6:00 AM. PAGE 1 Signed Report (CONTINUED) FAX: Paul Botello MD [phone] Busy: [address]: REG Name: GUICHO RAYMUNDO [facility] : 1950 Age/S: 70/M [address] [place] [address] Unit #: [id number] Loc: [place] [address] Phys: Paul Malloy MD Acct: [id number] Dis Date: Status: REG ER PHONE #: [phone] Exam Date: 08/30/2020 0545 FAX #: [phone] Reason: G TUBE PLACEMENT EXAMS: CPT CODE: [id number] XR ABDOMEN 1V (KUB) [id number] <Continued> SL: TPAINTER-H at 0603 Reported and signed by: Wily Lester M.D. CC: Paul Malloy MD Technologist: Tiarra Christensen RT(R) Trnscrd Date/Time/By: 08/30/2020 (0603) : By: [email or web address] PAGE 2 Signed Report
--- NOTE | 2021-01-01 10:47 | RAD REPORT ---
EXAM DESCRIPTION: RAD - Chest Single View - 01/01/2021 10:21 am CLINICAL HISTORY: Rectal bleeding COMPARISON: None. TECHNIQUE: AP portable chest image was obtained . FINDINGS: Limited by positioning. Elevated right hemidiaphragm of uncertain chronicity. No edema or evidence of pneumonia is identified. The heart size is within normal limits. Atherosclerosis. IMPRESSION: No definite acute process identified. Right hemidiaphragm elevation of uncertain etiolog y and/or chronicity.
[2021-01-01 11:26] LABS: Absolute Lymphocytes (CBC) 1.4 K/uL (0.7-4.9); Basophils % 0.4 % (0-1.3); Hematocrit 24.6 % (39.6-49.0); MPV 7.2 fL (7.6-11.3); RBC Red Blood Cell Count 3.11 M/uL (4.33-5.43)
--- NOTE | 2021-01-01 11:41 | RAD REPORT ---
EXAM DESCRIPTION: CT - Abdomen Pelvis W Contrast - 01/01/2021 11:25 am CLINICAL HISTORY: Rectal bleeding COMPARISON: None. TECHNIQUE: Biphasic, helical CT imaging of the abdomen and pelvis was performed following oral and 1 00 ml non-ionic IV contrast. All CT scans are performed using dose optimization technique as appropriate and may include automated exposure control or mA/KV adjustment according to patient size. FINDINGS: Emphysema. Basilar airspace disease in the lung bases, left greater than right likely repr esenting atelectasis. No focal liver lesions are identified. The gallbladder is unremarkable. The adrenal glands are unrema rkable. The spleen is unremarkable. No stones or hydronephrosis. No suspicious renal lesions. Diffuse wall thickening and hyperenhancement of the colon extending from about the mid transverse col on to the rectum consistent with colitis. There is copious gas within the bladder wall as well as the bladder lumen. Gas is also seen within the perivesical space on the left side (see image 84, series 501). Heterotopic calcification and chronic changes involving the right hip. No fracture is seen. IMPRESSION: 1. Findings concerning for emphysematous cystitis with suspected perforation. 2. Colitis extending from the transverse colon through the rectum with differential to include infect ious, inflammatory, as well as ischemic etiologies. Discussed with Moises Page by Dr. Steward at 5411 on 01/01/21.
[2021-01-01 11:45] LABS: ALT/SGPT 21 U/L (12-78); AST/SGOT 24 U/L (15-37); Albumin 1.5 g/dL (3.4-5.0); Alkaline Phosphatase 158 U/L (45-117); BUN Blood Urea Nitrogen 20 mg/dL (7-18); Bicarbonate 25 mmol/L (21-32); Bilirubin Direct 0.3 mg/dL (0-0.2); Bilirubin Total 0.6 mg/dL (0.2-1.0); Glucose Level 84 mg/dL (74-106); NT PRO-BNP 550 pg/mL (<125); Potassium 3.6 mmol/L (3.5-5.1); Protein, Total 5.4 g/dL (6.4-8.2); Sodium Level 142 mmol/L (136-145); Troponin (Emerg Dept Use Only) < 0.02 ng/mL (0.0-0.045)
[2021-01-01] MEDS ORDERED: NA CHLORIDE 0.9% 1,000 ML ONE (12:00)
[2021-01-01] MEDS ORDERED: ONDANSETRON 4 MG/2 ML VIAL ONE (12:01)
[2021-01-01] MEDS ORDERED: MORPHINE 2 MG/ML SYR ONE (12:01)
[2021-01-01 12:18] LABS: Protime INR 2.13
[2021-01-01 12:55] LABS: Platelet Estimate INCR; White Blood Cell Scan OK (OK)
[2021-01-01 12:56] LABS: Anisocytosis 2+; Blood Morphology Comment NOTED (NOT SEEN)
[2021-01-01] MEDS ORDERED: METRONIDAZOLE 500mg IVPB 500 MG/100 ML BAG IV ONE (14:14)
[2021-01-01] MEDS ORDERED: NA CHLORIDE 0.9% 100 ML ONE (14:14)
[2021-01-01] MEDS ORDERED: PIPERACIL/TAZO 3.375 GM VIAL IV ONE (14:14)
--- NOTE | 2021-01-01 15:13 | ER ---
Nurse's Notes [facility] Name: Junior Stahl Age: 70 yrs Sex: Male : 1950 Arrival Date: 01/01/2021 Time: 09:56 Bed 8 Private MD: Diagnosis: GI Bleed/ Gastrointestinal hemorrhage, unspecified;Anemia, unspecified;Infectious gastroenteritis and colitis, unspecified;Acute cystitis Presentation: 01/01 09:57 Chief complaint: EMS states: RECTAL BLEEDING NOTED AT [facility] THIS MORNING. bp Coronavirus screen: At this time, the client does not indicate any symptoms associated with coronavirus-19. Ebola Screen: No symptoms or risks identified at this time. Initial Sepsis Screen: Does the patient meet any 2 criteria? No. Patient's initial sepsis screen is negative. Does the patient have a suspected source of infection? No. Patient's initial sepsis screen is negative. Risk Assessment: Do you want to hurt yourself or someone else? Patient reports no desire to harm self or others. Onset of symptoms was January 01, 2021. Care prior to arrival: Glucose check: 88. 09:57 Method Of Arrival: EMS: [facility] bp 09:57 Acuity: SARBJIT 2 bp Triage Assessment: 10:07 General: Appears distressed, uncomfortable, Behavior is. Pain: Unable to use pain bp scale. Does not appear to understand pain scale. EENT: No deficits noted. Neuro: Level of Consciousness is awake, alert, obeys commands, Oriented to Appropriate for age. Cardiovascular: Rhythm is sinus rhythm. Respiratory: No deficits noted. GI: Parent/caregiver reports the patient having RECTAL BLEEDING. : No deficits noted. Derm: No deficits noted. Musculoskeletal: No deficits noted. Historical: - Allergies: 10:07 No Known Allergies; bp - Home Meds: 10:07 amantadine HCl 100 mg Oral tab 1 tab 2 times per day [Active]; amiodarone 200 mg Oral bp tab 1 tab once daily [Active]; amitriptyline 75 mg Oral tab 1 tab once daily [Active]; - PMHx: 10:07 Cerebrovascular accident; Hypertensive disorder; Gastroesophageal reflux disease; bp - Immunization history:: Adult Immunizations up to date. - Social history:: Smoking status: unknown. - Family history:: not pertinent. Screenin:58 Abuse screen: Denies threats or abuse. Denies injuries from another. Nutritional bp screening: No deficits noted. Tuberculosis screening: No symptoms or risk factors identified. Fall Risk None identified. Assessment: 11:45 Reassessment: No changes from previously documented assessment. Patient and/or family bp updated on plan of care and expected duration. Pain level reassessed. PT RETURNED FROM CT. 13:14 General: DISPOSITION ON HOLD FOR SOCIAL WORK C/S. SPOUSE REQUESTING HOSPICE AND RETURN bp TO [facility]. ARTURO TRUONG AT [facility] FOR RE-EVAL. 15:10 Reassessment: TRANSFER CANCELLED IN FAVOR OF PT RETURN TO [facility] ON HOSPICE, PER THE bp FAMILY'S WISHES. FAMILY DECLINING BLOOD TRANSFUSION. 15:59 Reassessment: [facility] REP AT [facility]. bp 17:00 Reassessment: D/C IN PROCESS. REPORT TO [facility]. bp 18:10 Reassessment: EMS AT [facility] FOR TRANSPORT. bp Vital Signs: 09:57 BP 98 / 60; Pulse 72; Resp 16; Temp 97.6; Pulse Ox 100% ; bp 11:00 BP 125 / 59; Pulse 79; Resp 19; Pulse Ox 98% ; bp 12:00 BP 128 / 91; Pulse 98; Resp 18; Pulse Ox 98% ; bp 13:00 BP 119 / 65; Pulse 79; Resp 16; Pulse Ox 97% ; bp 14:00 BP 101 / 56; Pulse 76; Resp 16; Pulse Ox 96% ; bp 15:00 BP 116 / 63; Pulse 79; Resp 16; Pulse Ox 98% ; bp ED Course: 09:56 Patient arrived in ED. bp 09:58 Arturo Truong PA is PHCP. cp 09:58 Arturo Herrera MD is Attending Physician. cp 10:05 Triage completed. bp 10:21 XRAY Chest (1 view) In Process Unspecified. EDMS 11:10 Inserted saline lock: 22 gauge in left hand, using aseptic technique. Blood collected. bp 11:11 Sloan Maravilla, RN is Primary Nurse. bp 11:25 CT Abd/Pelvis - IV Contrast Only In Process Unspecified. EDMS 11:58 Patient has correct armband on for positive identification. Bed in low position. Call bp light in reach. Side rails up X2. 12:00 Arm band placed on. bp 13:00 initiated transfer to [facility]. bd 13:16 transfer cancelled by Arturo SHAH. bd 16:16 Germain cath inserted, using sterile technique, 18 Fr., returned cloudy urine. Patient bp tolerated well. 18:10 No provider procedures requiring assistance completed. IV discontinued, intact, bp bleeding controlled, No redness/swelling at site. Pressure dressing applied. Administered Medications: 11:30 Drug: NS 0.9% 1000 ml Route: IV; Rate: 1000 ml/hr; Site: left hand; bp 18:12 Follow up: IV Status: Completed infusion; IV Intake: 1000ml bp 11:30 Drug: morphine 2 mg Route: IVP; Site: left hand; bp 15:08 Follow up: Response: Pain is decreased bp 11:30 Drug: Zofran (Ondansetron) 4 mg Route: IVP; Site: left hand; bp 15:09 Follow up: Response: No adverse reaction bp 13:00 Drug: Zosyn (piperacillin-tazobactam) 3.375 grams Route: IVPB; Infused Over: 60 mins; bp Site: left hand; 18:12 Follow up: IV Status: Completed infusion; IV Intake: 100ml bp 13:00 Drug: metroNIDAZOLE 500 mg Volume: 100 ml; Route: IVPB; Infused Over: 30 mins; Site: bp left hand; 18:12 Follow up: IV Status: Completed infusion; IV Intake: 100ml bp Intake: 18:12 IV: 100ml; Total: 100ml. bp 18:12 IV: 100ml; Total: 200ml. bp 18:12 IV: 1000ml; Total: 1200ml. bp Outcome: 15:11 Discharge ordered by MD. cp 18:10 Discharged to [facility]. Report called to [facility] Transfer form completed. bp 18:10 Condition: stable 18:10 Discharge instructions given to patient, [facility], Instructed on discharge instructions, follow up and referral plans. Demonstrated understanding of instructions, follow-up care. 18:13 Patient left the ED. bp Signatures: Dispatcher [employer] EDMS Shirley Teresa Corey, PA PA cp Peltier, Brian, RN RN bp Corrections: (The following items were deleted from the chart) 11:54 10:07 Allergies: No Known Allergies; bp bp 11:54 10:07 Allergies: ULCERATIVE COLITIS; bp bp
--- NOTE | 2021-01-01 15:13 | EDPHYS ---
Physician Documentation [facility] Name: Junior Stahl Age: 70 yrs Sex: Male : 1950 Arrival Date: 01/01/2021 Time: 09:56 Bed 8 Private MD: ED Physician Moises Herrera HPI: 01/01 10:05 This 70 yrs old Male presents to ER via Unassigned with complaints of Rectal cp Bleeding. 10:05 The patient presents to the emergency department with bleeding from the rectum/anus. cp Onset: The symptoms/episode began/occurred this morning. 10:05 Associate signs and symptoms: Pertinent positives: abdominal pain in the abdomen cp diffusely, Pertinent negatives: constipation, diarrhea, fever. 10:05 The patient presents to the emergency department with rectal bleeding, bright red cp blood, with multiple such episodes. 10:05 Unable to obtain HPI due to patient aphasic due to history of stroke. cp Historical: - Allergies: 10:07 No Known Allergies; bp - Home Meds: 10:07 amantadine HCl 100 mg Oral tab 1 tab 2 times per day [Active]; amiodarone 200 mg Oral bp tab 1 tab once daily [Active]; amitriptyline 75 mg Oral tab 1 tab once daily [Active]; - PMHx: 10:07 Cerebrovascular accident; Hypertensive disorder; Gastroesophageal reflux disease; bp - Immunization history:: Adult Immunizations up to date. - Social history:: Smoking status: unknown. - Family history:: not pertinent. ROS: 10:10 Constitutional: Negative for fever. cp 10:10 Eyes: Negative for injury, pain, redness, and discharge. cp 10:10 Cardiovascular: Negative for chest pain, edema. 10:10 Respiratory: Negative for cough, shortness of breath, wheezing. 10:10 Abdomen/GI: Positive for abdominal pain, rectal bleeding, Negative for vomiting, diarrhea, constipation, black/tarry stool. 10:10 Back: Negative for radiated pain. 10:10 Neuro: Negative for altered mental status. 10:10 Unable to obtain ROS due to patient aphasic due to history of stroke. cp Exam: 10:15 Constitutional: The patient appears in no acute distress, alert, awake, cp non-diaphoretic, non-toxic, well developed, well nourished. 10:15 Head/Face: Normocephalic, atraumatic. cp 10:15 Eyes: Periorbital structures: appear normal, Pupils: equal, round, and reactive to light and accomodation, Conjunctiva: normal, no exudate, no injection, Sclera: no appreciated abnormality, Lids and lashes: appear normal, bilaterally. 10:15 ENT: External ear(s): are unremarkable, Nose: is normal, Mouth: Lips: moist, Oral mucosa: moist, Posterior pharynx: Airway: no evidence of obstruction, patent. 10:15 Chest/axilla: Inspection: normal, Palpation: is normal, no crepitus, no tenderness. 10:15 Cardiovascular: Rate: normal, Rhythm: regular, Edema: is not appreciated, JVD: is not appreciated. 10:15 Respiratory: the patient does not display signs of respiratory distress, Respirations: normal, no use of accessory muscles, no retractions, labored breathing, is not present, Breath sounds: are clear throughout, no decreased breath sounds, no stridor, no wheezing. 10:15 Abdomen/GI: Inspection: abdomen appears normal, Bowel sounds: active, all quadrants, Palpation: soft, in all quadrants, mild abdominal tenderness, in the left upper quadrant and left lower quadrant, rebound tenderness, is not appreciated, involuntary guarding, is not appreciated, Rectal exam: Stool: noted blood in rectal area. 10:15 Skin: cellulitis, is not appreciated, no rash present. 10:15 Neuro: Orientation: no acute changes, per EMS, Mentation: no acute changes, per EMS, Motor: right hand contracted. 11:05 ECG was reviewed by the Attending Physician. cp Vital Signs: 09:57 BP 98 / 60; Pulse 72; Resp 16; Temp 97.6; Pulse Ox 100% ; bp 11:00 BP 125 / 59; Pulse 79; Resp 19; Pulse Ox 98% ; bp 12:00 BP 128 / 91; Pulse 98; Resp 18; Pulse Ox 98% ; bp 13:00 BP 119 / 65; Pulse 79; Resp 16; Pulse Ox 97% ; bp 14:00 BP 101 / 56; Pulse 76; Resp 16; Pulse Ox 96% ; bp 15:00 BP 116 / 63; Pulse 79; Resp 16; Pulse Ox 98% ; bp MDM: 10:05 Patient medically screened. cp 15:10 Data reviewed: vital signs, nurses notes, lab test result(s), EKG, radiologic studies, cp CT scan, I have discussed the patient's presentation/case with the attending Emergency Department Physician;. 15:10 Test interpretation: by ED physician or midlevel provider: ECG. ED course: Discussed cp results of labs, EKG and radiology studies with spouse who does not want patient transferred for urology consultation. [facility]. 01/01 10:08 Order name: Basic Metabolic Panel cp 01/01 10:08 Order name: CBC with Diff cp 01/01 10:08 Order name: LFT's cp 01/01 10:08 Order name: Magnesium cp 01/01 10:08 Order name: NT PRO-BNP cp 01/01 10:08 Order name: PT-INR cp 01/01 10:08 Order name: Troponin (emerg Dept Use Only) cp 01/01 10:08 Order name: Ptt, Activated cp 01/01 10:08 Order name: Type And Screen cp 01/01 10:08 Order name: Lactate; Complete Time: 15:12 cp 01/01 10:08 Order name: Procalcitonin; Complete Time: 15:12 cp 01/01 10:08 Order name: Blood Culture Adult (2) cp 01/01 10:08 Order name: Basic Metabolic Panel; Complete Time: 11:52 EDMS 01/01 11:53 Interpretation: Normal except: CL 110; BUN 20; CA 7.9. 01/01 10:08 Order name: XRAY Chest (1 view); Complete Time: 11:42 01/01 10:08 Order name: CT Abd/Pelvis - IV Contrast Only; Complete Time: 11:42 cp 01/01 10:08 Order name: CBC with Automated Diff; Complete Time: 15:12 EDMS 01/01 11:42 Interpretation: Normal except: RBC 3.11; HGB 7.7; HCT 24.6; MCV 79.2; MCH 24.8; MCHC cp 31.3; PLT 424; RDW 22.5; MPV 7.2; FANY% 81.3; LYM% 13.0; NEUT A 8.6. 01/01 10:08 Order name: Liver (Hepatic) Function; Complete Time: 11:52 EDMS 01/01 10:08 Order name: Magnesium; Complete Time: 11:52 EDMS 01/01 10:08 Order name: NT PRO-BNP; Complete Time: 11:52 EDMS 01/01 10:08 Order name: Protime (+INR); Complete Time: 15:12 EDMS 01/01 10:08 Order name: Troponin (Emerg Dept Use Only); Complete Time: 11:52 EDMS 01/01 10:08 Order name: PTT, Activated Partial Thromb; Complete Time: 15:12 EDMS 01/01 10:08 Order name: Type and Screen EDMS 01/01 11:40 Order name: CBC Smear Scan; Complete Time: 15:12 EDMS 01/01 11:59 Order name: COVID-19 : Document "Date of Symptom Onset" if Symptomatic. bd 01/01 12:00 Order name: CORONAVIRUS EDMS 01/01 10:08 Order name: EKG; Complete Time: 10:09 cp 01/01 10:08 Order name: Cardiac monitoring; Complete Time: 11:14 cp 01/01 10:08 Order name: EKG - Nurse/Tech; Complete Time: 11:14 cp 01/01 10:08 Order name: IV Saline Lock; Complete Time: 11:14 cp 01/01 10:08 Order name: Labs collected and sent; Complete Time: 11:13 cp 01/01 10:08 Order name: O2 Per Protocol; Complete Time: 11:13 cp 01/01 10:08 Order name: O2 Sat Monitoring; Complete Time: 11:13 cp 01/01 11:54 Order name: Germain; Complete Time: 16:16 cp 01/01 14:37 Order name: Social Service Consult EDMS EC:05 Rate is 84 beats/min. Rhythm is regular. TX interval is normal. QRS interval is normal. cp QT interval is normal. Interpreted by me. Reviewed by me. Administered Medications: 11:30 Drug: NS 0.9% 1000 ml Route: IV; Rate: 1000 ml/hr; Site: left hand; bp 18:12 Follow up: IV Status: Completed infusion; IV Intake: 1000ml bp 11:30 Drug: morphine 2 mg Route: IVP; Site: left hand; bp 15:08 Follow up: Response: Pain is decreased bp 11:30 Drug: Zofran (Ondansetron) 4 mg Route: IVP; Site: left hand; bp 15:09 Follow up: Response: No adverse reaction bp 13:00 Drug: Zosyn (piperacillin-tazobactam) 3.375 grams Route: IVPB; Infused Over: 60 mins; bp Site: left hand; 18:12 Follow up: IV Status: Completed infusion; IV Intake: 100ml bp 13:00 Drug: metroNIDAZOLE 500 mg Volume: 100 ml; Route: IVPB; Infused Over: 30 mins; Site: bp left hand; 18:12 Follow up: IV Status: Completed infusion; IV Intake: 100ml bp Disposition: 18:55 Co-signature as Attending Physician, Moises Herrera MD I agree with the assessment and [facility] plan of care. Disposition Summary: 01/01/21 15:11 Discharge Ordered Location: [facility] cp Problem: new cp Symptoms: are unchanged cp Condition: Stable cp Diagnosis - GI Bleed/ Gastrointestinal hemorrhage, unspecified cp - Anemia, unspecified cp - Infectious gastroenteritis and colitis, unspecified cp - Acute cystitis cp Followup: cp - With: Private Physician - When: Upon discharge from the Emergency Department - Reason: Recheck today's complaints Discharge Instructions: - Discharge Summary Sheet cp - Anemia cp - Gastrointestinal Bleeding cp - Colitis cp - Interstitial Cystitis cp Forms: - Medication Reconciliation Form cp - Thank You Letter cp - Antibiotic Education cp - Prescription Opioid Use cp - SBAR form bp Signatures: Dispatcher [employer] EDShirley Espinoza Corey, MD MD cha Page, Corey, PA PA Sloan Lynn, RN RN bp Corrections: (The following items were deleted from the chart) 11:53 11:52 Normal except: CL 110; BUN 20. cp cp 11:54 10:07 Allergies: No Known Allergies; bp bp 11:54 10:07 Allergies: ULCERATIVE COLITIS; bp bp 13:39 12:00 BB Add On+BB.LAB.BRZ ordered. EDMI EDMS 13:39 12:03 Labs collected and sent ordered. bd bp 22:19 10:10 Constitutional: Negative for body aches, chills, fever, poor PO intake, cp cp 22:19 10:10 Cardiovascular: Negative for chest pain, edema, palpitations, cp cp 22:19 10:10 Respiratory: Negative for cough, shortness of breath, wheezing, cp cp 22:19 10:10 Eyes: Negative for injury, pain, redness, and discharge, cp cp 22:19 10:10 ENT: Negative for ear pain, sore throat, difficulty swallowing, difficulty cp handling secretions, cp 22:19 10:10 Neuro: Negative for altered mental status, dizziness, headache, weakness, cp cp
[2021-01-01 18:33] VITALS: TEMP 97.6
[2021-01-01 18:43] VITALS: BP 116/63; O2SAT 98
--- NOTE | 2021-01-02 13:02 | EKG ---
Test Date: 2021-01-01 Test Time: 11:00:51 Music Producer: BISHNU MEASUREMENT RESULTS: Intervals: Rate: 84 OR: 188 QRSD: 94 QT: 338 QTc: 399 [place]: P: 35 OR: 188 QRS: -5 T: 267 INTERPRETIVE STATEMENTS: Normal sinus rhythm Incomplete right bundle branch block Nonspecific ST and T wave abnormality Abnormal ECG No previous ECG available for comparison Electronically Signed On 01-02-21 12:59:42 CDT by Herman Juarez
== END 2021-01-01 18:13 ==
LOC: ER 09:53
DX: D64.9 Anemia, unspecified (principal); A09 Infectious gastroenteritis and colitis, unspecified; N30.00 Acute cystitis without hematuria; I10 Essential (primary) hypertension; I69.320 Aphasia following cerebral infarction
CPT/HCPCS: 96365; 96361; 96368; 93005; 87040 ×2; 85025; 80048; 36415; 86900; 83735; 86850; 87205; 85610; 82565; 86901; 80076; 83605; 85730; 84484; 84145; 83880; 74177; 71045; 51702; 96375; 99285; 96366; Q9967; J2543; J2270; J7030; J2405